=== PATIENT | female | born 1970 | race Caucasian/White ===

== ENCOUNTER 2019-04-08 16:42 | Emergency (ER) | payer BC ==
--- NOTE | 2019-04-08 18:24 | ER Document Report ---
ED Medical Screen (RME) - General Stated Complaint: HERE FOR BLOOD TRANSFUSION Time Seen by Provider: 04/08/19 18:22 Primary Care Provider: SARAH WEAVER DO [Primary Care Provider] - Follow up as needed Mode of Arrival: Ambulatory Information source: Patient Notes: Patient reports having outpatient lab work and being called by her doctor advised her to come to the emergency department to get a blood transfusion. Patient states she has had body aches chest pain for several weeks fatigue and headache. Patient also reports abdominal cramping for the past 6 months.Patient does report a history of previous gastric bypass surgery I have greeted and performed a rapid initial assessment of this patient. A comprehensive ED assessment and evaluation of the patient, analysis of test resu lts and completion of the medical decision making process will be conducted by additional ED providers. TRAVEL OUTSIDE OF THE [place] IN LAST 30 DAYS: No - Related Data Allergies/Adverse Reactions: No Known Allergies Allergy (Verified 06/06/14 23:26) Past Medical History Endocrine Medical History: Reports: Hx Hypothyroidism Past Surgical History: Reports: Hx Cholecystectomy, Hx Orthopedic Surgery - Immunizations Hx Diphtheria, Pertussis, Tetanus Vaccination: Yes Physical Exam - Vital signs Vitals: Temp Pulse Resp BP Pulse Ox 98.1 F 102 H 16 119/68 97 04/08/19 17:34 04/08/19 17:34 04/08/19 17:34 04/08/19 17:34 04/08/19 17:34 - General General appearance: Appears well, Alert Notes: Pale Course - Vital Signs Vital signs: Temp Pulse Resp BP Pulse Ox 98.1 F 102 H 16 119/68 97 04/08/19 17:34 04/08/19 17:34 04/08/19 17:34 04/08/19 17:34 04/08/19 17:34 Doctor's Discharge - Discharge Referrals: SARAH WEAVER DO [Primary Care Provider] - Follow up as needed
--- NOTE | 2019-04-08 19:01 | RADIOLOGY REPORT (SQ) ---
EXAM DESCRIPTION: CHEST 2 VIEWS COMPLETED DATE/TIME: 04/08/2019 6:50 pm REASON FOR STUDY: cp COMPARISON: None. EXAM PARAMETERS: NUMBER OF VIEWS: two views TECHNIQUE: Digital Frontal and Lateral radiographic views of the chest acquired. RADIATION DOSE: NA LIMITATIONS: none FINDINGS: LUNGS AND PLEURA: No opacities, masses or pneumothorax. No pleural effusion. MEDIASTINUM AND HILAR STRUCTURES: No masses or contour abnormalities. HEART AND VASCULAR STRUCTURES: Heart normal size. No evidence for failure. BONES: No acute findings. HARDWARE: None in the chest. OTHER: No other significant finding. IMPRESSION: NO ACUTE RADIOGRAPHIC FINDING IN THE CHEST. TECHNICAL DOCUMENTATION: JOB ID: [id number] [employer]- All Rights Reserved Reading location - IP/workstation name: [email or web address]
[2019-04-08 20:04] LABS: APPEARANCE,URINE CLEAR; BILIRUBIN,URINE NEGATIVE (NEGATIVE); COLOR,URINE YELLOW; GLUCOSE, URINE NEGATIVE (NEGATIVE); KETONES,URINE NEGATIVE (NEGATIVE); LEUKOCYTE ESTERASE,URINE NEGATIVE (NEGATIVE); NITRITE,URINE NEGATIVE (NEGATIVE); PROTEIN,URINE NEGATIVE (NEGATIVE); URINE SPECIFIC GRAVITY 1.013
[2019-04-08 20:05] LABS: ABSOLUTE EOSINOPHILS # (AUTO) 0.1 10^3/uL (0.0-0.6); ABSOLUTE LYMPHOCYTES (AUTO) 1.8 10^3/uL (0.5-4.7); ABSOLUTE MONOCYTES (AUTO) 0.4 10^3/uL (0.1-1.4); ABSOLUTE NEUT (AUTO) 3.6 10^3/uL (1.7-8.2); BASOPHILS % (AUTO) 0.6 % (0-2); EOSINOPHILS % (AUTO) 1.7 % (0-6); HEMATOCRIT 24.3 % (36.0-47.0); LYMPHOCYTES % (AUTO) 30.3 % (13-45); MEAN CORPUSCULAR HEMOGLOBIN 19.8 pg (27.0-33.4); MEAN CORPUSCULAR HGB CONC 29.9 g/dL (32.0-36.0); MEAN CORPUSCULAR VOLUME 66 fl (80-97); MONOCYTES % (AUTO) 7.4 % (3-13); PLATELET COUNT 290 10^3/uL (150-450); RED BLOOD COUNT 3.68 10^6/uL (3.72-5.28); TOTAL CELLS COUNTED % (AUTO) 100 %
[2019-04-08 20:09] LABS: HEMOGLOBIN 7.3 g/dL (12.0-15.5)
[2019-04-08 20:35] LABS: ALBUMIN 4.3 g/dL (3.5-5.0); ALKALINE PHOSPHATASE 88 U/L (38-126); ANION GAP 10 (5-19); ASPARTATE AMINO TRANSFERASE 25 U/L (14-36); BILIRUBIN,DIRECT 0.2 mg/dL (0.0-0.4); BILIRUBIN,TOTAL 0.4 mg/dL (0.2-1.3); BLOOD UREA NITROGEN 11 mg/dL (7-20); CALCIUM 9.2 mg/dL (8.4-10.2); CARBON DIOXIDE 24 mmol/L (22-30); CHLORIDE 103 mmol/L (98-107); GLUCOSE 87 mg/dL (75-110); POTASSIUM 4.3 mmol/L (3.6-5.0); TOTAL PROTEIN 7.3 g/dL (6.3-8.2)
[2019-04-08] MEDS ORDERED: NORMAL SALINE 250 ML IV PRN ×2 (21:15)
--- NOTE | 2019-04-08 21:16 | ER Document Report ---
ED General - General Chief Complaint: Abnormal Lab Results Stated Complaint: HERE FOR BLOOD TRANSFUSION Time Seen by Provider: 04/08/19 18:22 Mode of Arrival: Ambulatory Notes: Patient is a 48-year-old female that comes emergency department for chief complaint of being sent to the emergency department by her primary care provider for abnormal lab values. She states that she was told that she likely needed a blood transfusion. She states that she was being seen routinely although when asked she states she has had mainly generalized aches and fatigue and headaches for the past several weeks. She states occasionally she has abdominal cramping but not now. She denies abnormal vaginal bleeding, blood in the stool, and she denies any current complaints. Patient does report a history of gastric bypass surgery and she was transfused once for an acute injury and hemorrhage but she denies transfusion otherwise. Patient states she has had negative endoscopy and colonoscopy in the past. TRAVEL OUTSIDE OF THE [place] IN LAST 30 DAYS: No - Related Data Allergies/Adverse Reactions: No Known Allergies Allergy (Verified 06/06/14 23:26) Past Medical History - General Information source: Patient - Social History Smoking Status: Never Smoker Frequency of alcohol use: None Drug Abuse: None Family History: Reviewed & Not Pertinent Patient has suicidal ideation: No Patient has homicidal ideation: No Endocrine Medical History: Reports: Hx Hypothyroidism Past Surgical History: Reports: Hx Cholecystectomy, Hx Orthopedic Surgery - Immunizations Hx Diphtheria, Pertussis, Tetanus Vaccination: Yes Review of Systems - Review of Systems Constitutional: See HPI EENT: No symptoms reported Cardiovascular: See HPI Respiratory: No symptoms reported Gastrointestinal: No symptoms reported Genitourinary: No symptoms reported Female Genitourinary: No symptoms reported Musculoskeletal: See HPI Skin: No symptoms reported Hematologic/Lymphatic: No symptoms reported Neurological/Psychological: No symptoms reported Physical Exam - Vital signs Vitals: Temp Pulse Resp BP Pulse Ox 98.1 F 102 H 16 119/68 97 04/08/19 17:34 04/08/19 17:34 04/08/19 17:34 04/08/19 17:34 04/08/19 17:34 - Notes Notes: GENERAL: Alert, interacts well. No acute distress. Very talkative HEAD: Normocephalic, atraumatic. EYES: Pupils equal, round, and reactive to light. Extraocular movements intact. ENT: Oral mucosa moist, tongue midline. Oropharynx unremarkable. Airway patent. NECK: Full range of motion. Supple. Trachea midline. LUNGS: Clear to auscultation bilaterally, no wheezes, rales, or rhonchi. No respiratory distress. HEART: Mild tachycardia, normal rhythm. No murmur ABDOMEN: Soft, non-tender. Non-distended. Bowel sounds present in all 4 quadrants. GENITOURINARY: Deferred EXTREMITIES: Moves all 4 extremities spontaneously. No edema, normal radial and dorsalis pedis pulses bilaterally. No cyanosis. BACK: no cervical, thoracic, lumbar midline tenderness. No saddle anesthesia, normal distal neurovascular exam. Moves all extremities in full range of motion. NEUROLOGICAL: Alert and oriented x3. Normal speech. Cranial nerves II through XII grossly intact. PSYCH: Normal affect, normal mood. SKIN: Warm, dry, normal turgor. No rashes or lesions noted. Course - Re-evaluation Re-evalutation: On my initial examination patient is borderline tachycardic but she is otherwise well-appearing. At rest she has no complaints other than some feeling some generalized achiness. She does not tell me she is specific chest pain. EKG and troponin nonspecific. Chest x-ray unremarkable. General laboratory work-up unremarkable except for noted microcytic anemia with hemoglobin of 7.3. Because patient is symptomatic anemia she will be transfused. I did discuss at length with patient, she denies heavy menstrual periods, blood in the stool, she states she is unable to provide us with a sample of stool. She states that she has been told about anemia in the past but she is unsure the cause. I suspect this is related to her gastric bypass and patient does have referral in regards to this. Patient reevaluated after blood transfusion, she has no current complaints, her tachycardia has resolved, discussed follow-up and return precautions. Patient states appreciation and agreement. - Vital Signs Vital signs: Temp Pulse Resp BP Pulse Ox 97.7 F 78 13 104/65 100 04/09/19 00:41 04/09/19 00:41 04/09/19 00:41 04/09/19 00:41 04/09/19 00:41 - Laboratory Result Diagrams: 04/08/19 19:30 04/08/19 19:30 Laboratory results interpreted by me: 04/08/19 04/08/19 04/08/19 19:30 19:30 19:30 RBC 3.68 L Hgb 7.3 L Hct 24.3 L MCV 66 L MCH 19.8 L MCHC 29.9 L RDW 21.0 H Sodium 136.7 L Urine Urobilinogen Crossmatch See Detail 04/08/19 19:30 RBC Hgb Hct MCV MCH MCHC RDW Sodium Urine Urobilinogen 2.0 H Crossmatch Discharge - Discharge Clinical Impression: Symptomatic anemia Condition: Stable Disposition: HOME, SELF-CARE Additional Instructions: Your hemoglobin was 7.3 today. As result you have received a blood transfusion for your anemia symptoms. Please follow-up with your primary care for recheck and additional management. Return if you worsen including blood in the stool, passing out, or any other concerning or worsening symptoms. Forms: Return to Work
[2019-04-09 00:46] VITALS: BP 104/65
--- NOTE | 2019-04-09 07:43 | EKG REPORT ---
SEVERITY:- NORMAL ECG - SINUS RHYTHM : Confirmed by: Malcolm Michael MD 09-Apr-2019 07:42:22
== END 2019-04-09 01:05 | disposition home or self-care (01) ==
LOC: ER 16:42
DX: D64.9 Anemia, unspecified (principal); M79.10 Myalgia, unspecified site; R53.83 Other fatigue; R51 Headache; R10.9 Unspecified abdominal pain
CPT/HCPCS: 86900; 86901; 36415; 36430; 86850; 83690; 84703; 85025; 80053; 81001; 84484; 86920; 71046; P9016; 93005; 93010

== ENCOUNTER 2019-07-29 00:56 | Emergency (ER) | payer BC ==
[2019-07-29 02:09] LABS: ABSOLUTE EOSINOPHILS # (AUTO) 0.2 10^3/uL (0.0-0.6); ABSOLUTE LYMPHOCYTES (AUTO) 1.5 10^3/uL (0.5-4.7); ABSOLUTE MONOCYTES (AUTO) 0.5 10^3/uL (0.1-1.4); ABSOLUTE NEUT (AUTO) 4.7 10^3/uL (1.7-8.2); BASOPHILS % (AUTO) 0.4 % (0-2); EOSINOPHILS % (AUTO) 2.9 % (0-6); HEMATOCRIT 36.6 % (36.0-47.0); HEMOGLOBIN 12.3 g/dL (12.0-15.5); LYMPHOCYTES % (AUTO) 21.2 % (13-45); MEAN CORPUSCULAR HEMOGLOBIN 27.3 pg (27.0-33.4); MEAN CORPUSCULAR HGB CONC 33.5 g/dL (32.0-36.0); MEAN CORPUSCULAR VOLUME 81 fl (80-97); MONOCYTES % (AUTO) 6.6 % (3-13); PLATELET COUNT 322 10^3/uL (150-450); RED BLOOD COUNT 4.51 10^6/uL (3.72-5.28); RED CELL DISTRIBUTION WIDTH 23.5 % (11.5-14.0); SEGMENTED NEUTROPHILS % (AUTO) 68.9 % (42-78); TOTAL CELLS COUNTED % (AUTO) 100 %; WHITE BLOOD COUNT 6.9 10^3/uL (4.0-10.5)
[2019-07-29 02:23] LABS: A TYPE INFLUENZA AG NEGATIVE (NEGATIVE); B INFLUENZA AG NEGATIVE (NEGATIVE)
[2019-07-29 02:32] LABS: ALBUMIN 3.8 g/dL (3.5-5.0); ALKALINE PHOSPHATASE 105 U/L (38-126); ANION GAP 11 (5-19); ANISOCYTOSIS 3+; ASPARTATE AMINO TRANSFERASE 15 U/L (14-36); BILIRUBIN,DIRECT 0.3 mg/dL (0.0-0.4); BILIRUBIN,TOTAL 0.6 mg/dL (0.2-1.3); BLOOD UREA NITROGEN 11 mg/dL (7-20); CALCIUM 9.5 mg/dL (8.4-10.2); CARBON DIOXIDE 24 mmol/L (22-30); CHLORIDE 106 mmol/L (98-107); CREATINE KINASE 39 U/L (30-135); GLUCOSE 101 mg/dL (75-110); OVALOCYTES 1+; PLATELET COMMENT ADEQUATE; POIKILOCYTOSIS 1+; POLYCHROMASIA 1+; POTASSIUM 4.3 mmol/L (3.6-5.0); TEAR DROP CELLS 1+
[2019-07-29 02:57] LABS: CREATINE KINASE MB 0.26 ng/mL (<4.55)
[2019-07-29 02:58] LABS: TROPONIN I < 0.012 ng/mL
[2019-07-29] MEDS ORDERED: PREDNISONE 20 MG TABLET PO ONE (04:20)
[2019-07-29] MEDS ORDERED: BENZONATATE 100 MG CAPSULE PO ONE (04:20)
[2019-07-29] MEDS ORDERED: IPRATROPIUM/ALBUTEROL 0.5-2.5 MG/3 ML AMPUL NEB ONE (04:20)
--- NOTE | 2019-07-29 04:22 | ER Document Report ---
ED General - General Chief Complaint: Chest Pain Stated Complaint: CHEST PAIN Time Seen by Provider: 07/29/19 03:57 Primary Care Provider: DON JORDAN PA-C [Primary Care Provider] - Follow up as needed Notes: Patient is a 48-year-old female who presents to the emergency department with a chief complaint of chest pain. Patient has had her pain for the past 3 weeks. She is also had a cough for the past 3 weeks. States that she feels short of breath. She is able to get a good deep breath in, but is unable to get a good deep breath out. Patient has a past medical history of anemia. TRAVEL OUTSIDE OF THE [place] IN LAST 30 DAYS: No - Related Data Allergies/Adverse Reactions: No Known Allergies Allergy (Verified 06/06/14 23:26) Past Medical History - Social History Smoking Status: Never Smoker Family History: Reviewed & Not Pertinent Patient has suicidal ideation: No Patient has homicidal ideation: No Endocrine Medical History: Reports: Hx Hypothyroidism Past Surgical History: Reports: Hx Cholecystectomy, Hx Orthopedic Surgery - Immunizations Hx Diphtheria, Pertussis, Tetanus Vaccination: Yes Review of Systems - Review of Systems Notes: REVIEW OF SYSTEMS: CONSTITUTIONAL : Denies recent illness. Denies recent unintentional weight loss. Denies fever, chills, or sweats. EENT: Denies eye, ear, throat, or mouth pain, discharge, or symptoms. Denies nasal or sinus congestion. CARDIOVASCULAR: See HPI. RESPIRATORY: See HPI. GASTROINTESTINAL: Denies nausea, vomiting, and diarrhea. Denies abdominal pain. Denies constipation. GENITOURINARY: Denies difficulty urinating, burning, blood in urine, urgency or frequency. MUSCULOSKELETAL: Denies neck and back pain. Denies joint pain or swelling. SKIN: Denies rash, itchiness, or lesions HEMATOLOGIC : Denies easy bruising or bleeding. LYMPHATIC: Denies swollen, painful, enlarged glands. NEUROLOGICAL: Denies no numbness or tingling denies weakness. Denies headache. Denies altered mental status. Denies alteration in speech. PSYCHIATRIC: Denies stress, anxiety, alteration in sleep patterns, or depression. All other systems reviewed and negative. Physical Exam - Vital signs Vitals: Temp Pulse Resp BP Pulse Ox 97.7 F 98 18 115/69 93 07/29/19 01:23 07/29/19 01:23 07/29/19 01:23 07/29/19 01:23 07/29/19 01:23 - Notes Notes: PHYSICAL EXAMINATION: GENERAL: Appears well, healthy, well-nourished, no acute distress. HEAD: Normocephalic, atraumatic. EYES: PERRL, conjunctiva normal, all extraocular movements intact, sclera non icteric ENT: Moist mucous membranes. NECK: Supple, no noticeable swelling, redness, rash. Normal range of motion. LUNGS: Diminished expiratory breath sounds throughout. No wheezing noted. Coug h noted. CARDIOVASCULAR: S1-S2, regular rate, regular rhythm. Radial pulses 2+, normal. ABDOMEN: Normoactive bowel sounds. Soft, nontender, no guarding, no rebound tenderness, and no masses palpated. EXTREMITIES: Normal strength and range of motion, no pitting or edema. No cyanosis. NEUROLOGICAL: Moves all extremities upon command. Strength 5/5 in all extremities. PSYCH: Normal mood, normal affect. SKIN: Warm, dry. No rash, lesions, ulcerations noted. Normal skin turgor. Course - Re-evaluation Re-evalutation: 07/29/19 05:20 Patient's chest x-ray is negative for pneumonia. States that she is breathing better now that she received a DuoNeb treatment. Hematology is unremarkable. Chemistries are also unremarkable. Troponin ordered in triage is negative. Her influenza tests are negative. Patient history is consistent with bronchitis. Patient will be started on prednisone. I also send her home with steroids and albuterol inhaler with a spacer. She will follow-up with her primary care provider. Follow-up precautions were given. Verbal discharge instructions were given to the patient. They verbalized understanding. They are stable for discharge. - Vital Signs Vital signs: Temp Pulse Resp BP Pulse Ox 97.7 F 98 14 115/69 95 07/29/19 01:23 07/29/19 01:23 07/29/19 02:36 07/29/19 01:23 07/29/19 02:36 - Laboratory Result Diagrams: 07/29/19 01:35 07/29/19 01:35 Laboratory results interpreted by me: 07/29/19 01:35 RDW 23.5 H Discharge - Discharge Clinical Impression: Bronchitis, Cough Condition: Stable Disposition: HOME, SELF-CARE Additional Instructions: You were seen for symptoms most consistent with bronchitis. This can take up to 12 weeks to fully resolve. This is generally due to a viral infection. Please follow-up with your primary doctor in the next 2-3 days. Return if you develop worsening cough, vomiting, fever >100.4, pass out, begin coughing blood, or have any other symptoms that are concerning to you. Please use the medications prescribed today as directed. Prescriptions: Benzonatate [Tessalon Perle 100 mg Capsule] 200 mg PO Q12HP PRN #40 cap PRN Reason: Prednisone [Deltasone 20 mg Tablet] 3 tab PO DAILY 4 Days #12 tablet Forms: Return to Work Referrals: DON JORDAN PA-C [Primary Care Provider] - Follow up in 3-5 days
[2019-07-29] MEDS ORDERED: ACETAMINOPHEN 325 MG TABLET PO ONE (04:59)
[2019-07-29] MEDS ORDERED: IBUPROFEN 600 MG TABLET PO ONE (04:59)
--- NOTE | 2019-07-29 05:06 | RADIOLOGY REPORT (SQ) ---
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 Comparison: Chest radiograph performed 04/08/2019 Findings: The cardiomediastinal silhouette is normal in size. No pneumothorax is seen. No discrete pleural effusion is apparent. No acute airspace opacities are seen. Impression: No acute airspace opacities are seen.
[2019-07-29 05:21] VITALS: BP 117/68
[2019-07-29] MEDS ORDERED: ALBUTEROL SULFATE HFA (90 MCG/PUFF) 8 GM MDI (1 MDI/ER DISP) IH ONE (05:21)
--- NOTE | 2019-07-29 06:28 | EKG REPORT ---
SEVERITY:- NORMAL ECG - SINUS RHYTHM : Confirmed by: Malcolm Michael MD 29-Jul-2019 06:28:15
== END 2019-07-29 05:45 | disposition home or self-care (01) ==
LOC: ER 00:56
DX: J40 Bronchitis, not specified as acute or chronic (principal); R07.9 Chest pain, unspecified; R06.02 Shortness of breath; E03.9 Hypothyroidism, unspecified; Z90.49 Acquired absence of other specified parts of digestive tract
CPT/HCPCS: 93005; 94640; 99285; 36415; 82553; 82550; 85025; 80053; 84484; 87804; 71046; 93010; J7512; J3490; J7620

== ENCOUNTER → 2019-10-23 | Outpatient (CLI) | payer BC ==
--- NOTE | 2019-10-23 10:02 | ER RDC ASSESSMENT REPORT ---
Intake - In the Last 14 days Have you traveled outside [place]?: No Have you been in close contact with someone CONFIRMED: No Worked in Healthcare?: No - Symptoms Subjective Fever(Sweeny feverish): Yes Chills: Yes Muscule Aches: Yes Runny Nose: Yes Sore Throat: No Cough (New or worsening chronic cough): Yes Shortness of breath: Yes Nausea or Vomiting: Yes Headache: Yes Abdominal Pain: Yes Diarrhea(3 or more loose stools in last 24 hours): Yes - Do you have any of the following Chronic lung disease: Asthma or emphysema or COPD: No Cystic Fibrosis: No Diabetes: No High Blood Pressure: No Cardiovascular Disease: No Chronic Kidney Disease: No Chronic Liver Disease: No Chronic blood disorder like Sickle Cell Disease: Yes Chronic Blood Disorder Comment: "severe anemia"- unspecified type Weak immune system due to disease or medication: No Neurologic condition that limits movement: No Developmental delay - Moderate to Severe: No Recent (within past 2 weeks) or current : No Morbid Obesity (>100 pounds over ideal weight): No - Objective Temperature: 98.1 F Pulse Rate: 89 Respiratory Rate: 16 Blood Pressure: 119/74 O2 Sat by Pulse Oximetry: 99 Objective: Given above, testing performed: rapid strep, flu If Testing Performed: Test Specimen Type Sent to Disposition: Home; Selfcare General - General Chief Complaint: Cough Stated Complaint: nonproductive cough, "difficult to breath out", myalgia, gi upset Time Seen by Provider: 10/23/19 09:45 Mode of Arrival: Ambulatory Information source: Patient - HPI Patient complains to provider of: "feel like I'm getting bronchitis again", "difficult to breath out", fatigu Onset: Other - Monday night (10/21/2019) Onset/Duration: Sudden Quality of pain: No pain Associated symptoms: Body/muscle aches, Chills, Nonproductive cough, Diarrhea, Headache, Nausea, Rhinnorhea, Shortness of breath Exacerbated by: Movement, Coughing Relieved by: Remaining still Similar symptoms previously: Yes - states she was treated for acute bronchitis in August- feels the same now Recently seen / treated by doctor: No - called PCP who referred for COVID testing but has not treated - Related Data Allergies/Adverse Reactions: No Known Allergies Allergy (Verified 06/06/14 23:26) Home Medications: levothyroxine, tylenol Past Medical History - General Information source: Patient - Social History Smoking Status: Never Smoker Family History: Reviewed & Not Pertinent - Past Medical History Cardiac Medical History: Reports: None Pulmonary Medical History: Reports: None EENT Medical History: Reports: None Neurological Medical History: Reports: None Endocrine Medical History: Reports: Hx Hypothyroidism Renal/ Medical History: Reports: None Malignancy Medical History: Reports: None GI Medical History: Reports: None Musculoskeletal Medical History: Reports None Skin Medical History: Reports None Psychiatric Medical History: Reports: None Traumatic Medical History: Reports: None Infectious Medical History: Reports: None Past Surgical History: Reports: Hx Cholecystectomy, Hx Orthopedic Surgery Other: anemia- unspecified Physical Exam - Vital signs Interpretation: Normal - General General appearance: Other - appears ill but in no apparent distress In distress: None Notes: PHYSICAL EXAMINATION: GENERAL: Ill-appearing but in no acute distress. HEAD: Atraumatic, normocephalic. EYES: sclera anicteric, conjunctiva are normal. ENT: nares patent. Moist mucous membranes. NECK: Normal range of motion, supple without lymphadenopathy LUNGS: CTAB and equal, diminished bases. No wheezes rales or rhonchi. HEART: Regular rate and rhythm without murmurs ABDOMEN: Soft, nontender, normal bowel sounds, no guarding. EXTREMITIES: Normal range of motion, no pitting edema. No cyanosis. NEUROLOGICAL: Cranial nerves grossly intact. Normal speech. PSYCH: Normal mood, normal affect. SKIN: Warm, Dry, normal turgor, no rashes or lesions noted Patient Education/Counseling Counseling/Education: Patient presents with upper respiratory symptoms worrisome for possible Covid 19. Patient does not have emergency worrying symptoms such as difficulty breathing, shortness of breath, chest pain, pressure, confusion or cyanosis. Patient appears suitable for discharge as patient's vital signs are stable and patient is nontoxic in appearance. Good return precautions have been discussed with patient, patient verbalized understanding and is agreeable with discharge plan of care at this time. Guidance for worsening S/SX: As a person under investigation for Covid 19, the [facility], division of public health advises you to adhere to the following guidance until your test results are reported to you. If your test result is positive, you will receive additional information from your provider and your local health department at that time. Remain at home until you are cleared by the health provider or public health authorities. Keep a log of visitors to your home, notify any visitors to your home of your isolation status. If you plan to move to a new address or leave the county, notify the local health department in your County. Call your doctor or seek care if you have an urgent medical need. Before seeking medical care, call ahead to get instructions from the provider before arriving at the medical office clinic or hospital. Notify them that you are being tested for the virus that causes Covid 19 so that arrangements can be made, as necessary, to prevent transmission to others in the healthcare setting. Next, notify the local health department in your county. If a medical emergency arises and you need to call 911, inform the first responders that you are being tested for the virus that causes Covid 19. Next, notify the local health department in your county. RDC Discharge - Discharge Clinical Impression: covid 19 screen Condition: Stable Disposition: Home; Selfcare
[2019-10-23 10:03] VITALS: BP 119/74
[2019-10-23 10:24] LABS: A TYPE INFLUENZA AG NEGATIVE (NEGATIVE); B INFLUENZA AG NEGATIVE (NEGATIVE)
== END ==
LOC: RDC 09:23
PROVIDERS: ATTEND Registered Nurse
DX: Z20.828 Contact with and (suspected) exposure to other viral communicable diseases (principal); R05 Cough; R06.02 Shortness of breath; R53.83 Other fatigue; J34.89 Other specified disorders of nose and nasal sinuses; M79.10 Myalgia, unspecified site; R68.83 Chills (without fever); R19.7 Diarrhea, unspecified; R51 Headache; R11.0 Nausea; D64.9 Anemia, unspecified; R10.9 Unspecified abdominal pain
CPT/HCPCS: 87070; 87635; 87804; 87880; 99211

== ENCOUNTER 2019-11-29 12:47 | Outpatient (CLI) | payer BC ==
[~2019-11-29 12:47] MED LIST: FERUMOXYTOL 510 MG in NORMAL SALINE 100 ML IV PRN; NORMAL SALINE 250 ML IV PRN
[2019-11-29 13:15] VITALS: BP 118/69
== END 2019-11-29 14:00 | disposition home or self-care (01) ==
LOC: II 12:47 → 5TH 12:51 → II 14:00
PROVIDERS: ATTEND Internal Medicine Hematology & Oncology
DX: D50.9 Iron deficiency anemia, unspecified (principal); K90.9 Intestinal malabsorption, unspecified
CPT/HCPCS: 96365; Q0138; J7050

== ENCOUNTER 2019-12-06 12:57 | Outpatient (CLI) | payer BC ==
[~2019-12-06 12:57] MED LIST changes: +FERUMOXYTOL (NON-ESRD) 510 MG/NS 100 ML IV PRN; -FERUMOXYTOL 510 MG in NORMAL SALINE 100 ML IV PRN
[2019-12-06 13:35] VITALS: BP 113/65
== END 2019-12-06 14:39 | disposition home or self-care (01) ==
LOC: II 12:57 → 5TH 13:28 → II 14:39
PROVIDERS: ATTEND Internal Medicine Hematology & Oncology
DX: D50.9 Iron deficiency anemia, unspecified (principal); K90.9 Intestinal malabsorption, unspecified
CPT/HCPCS: 96365; Q0138; J7050